=== PATIENT | female | born 1950 | race Caucasian/White ===

== ENCOUNTER 2024-05-10 11:36 | Emergency (ER) | payer MEDICARE, BC, SELFPAY ==
[2024-05-10 11:48] VITALS: BP 129/105
[2024-05-10 11:55] VITALS: BP 105/53
[2024-05-10 12:01] VITALS: BP 99/68
--- NOTE | 2024-05-10 12:14 | ED.GENMED ---
History of Present Illness
<Felicity Bruner PA-C - Last Filed: 05/10/24 17:35>
General
Chief Complaint: Chest Pain
Source: patient
Exam Limitations: none
Time Seen by Provider: 05/10/24 12:13
Nursing documentation reviewed up to this point in time: agreed with
History of Present Illness
History of Present Illness:
This is a 73 y/o female with a PMH of hypertension, hyperlipidemia, thyroid cancer, intellectual disability, resting tremors presenting emergency department today with concerns of chest pain. Patient is present with her brother who is her primary
licensed psychologist manager. According to brother, patient is a poor historian and will hear about someone else having a medical problem and starts to express those complains. He states that when it started, he thought nothing of it due to this but than her
complaints persisted and she repeatedly requested to see her primary care provider Dr. Santana. Patient herself reports that this pain is felt in the middle of her chest and radiates down the left arm. It is not related to exertion. It will come on
randomly. Brother lives with patient and that she has had no falls recently, no history of trauma on the external chest wall. Patient denies any shortness of breath. Brother denies any family history of cardiac disease. Patient is on Xarelto for
recurrent blood clots, she wears compression leggings on her left leg. Patient denies belly pain, back pain, nausea, vomiting.
Past History
<Felicity Bruner PA-C - Last Filed: 05/10/24 17:35>
Past History
ED Past Medical History: HTN, Hypercholesterolemia and Other (Frequent UTI, Mentally challanged, previous DVT on anticoagulation)
ED Past Surgical History: Cholecystectomy
Social History
Tobacco: Non-smoker
Alcohol: None
Personal: Single
Living: with family
Employment: Disabled
Family History
Family History: Negative Diabetes, Hypertension or CAD
Review of Systems
<Felicity Bruner PA-C - Last Filed: 05/10/24 17:35>
Review of Systems
All Other Systems: ROS reviewed and negative except as documented in HPI and ROS
Phy Exam
<Felicity Bruner PA-C - Last Filed: 05/10/24 17:35>
Physical Exam
Physical Exam:
General: Patient is well appearing and in no acute distress; non-toxic
Skin: Warm and dry, no rashes or lesions
Head: Normocephalic, atraumatic
Eyes: Sclera non-icteric. EOMs intact. PERRLA.
Cardiac: Regular rate and rhythm, no murmurs. Mild tenderness to palpation of the external chest wall
Peripheral Vascular: No lower extremity swelling or edema
Pulm: Normal respiratory effort, no wheezes, rales, or rhonchi.
Abdomen: No abdominal tenderness to palpation, no palpable masses
Neuro: CN II-XII intact, no focal neurologic deficits.
Psychiatric: Appropriate mood and affect.
Scores
<Felicity Bruner PA-C - Last Filed: 05/10/24 17:35>
Heart Score for Chest Pain Patients
STEMI patient?: No
History: Slightly or Non-Suspicious
ECG: Normal
Age: >/= 65 years
Risk Factors: 1 or 2 Risk Factors
Troponin: </= Normal Limit
Heart Score for Chest Pain Patients: 3
Heart Score Risk: 2.5% MACE over next 6 weeks
Course
<Felicity Bruner PA-C - Last Filed: 05/10/24 17:35>
Orders/Labs/Results
Orders:
Orders
05/10/24 11:38
ECG [Electrocardiogram (*1)] Urgent
Reason for Study: Chest Pain
EKG- Treatment ONCE
05/10/24 12:25
Cardiac Monitoring- Treatment ONCE
IV Insert/Care/Rem.- Treatment PRN
O2 Therapy [RESP] Urgent
Titrate/Wean O2 to maintain O2 sat greater than (%): 90
Special Instructions: Maintain sats >/=90%
Pulse Ox/spot Check [RESP] Urgent
Quantity: 1
Special Instructions: ON ROOM AIR
05/10/24 12:32
CR Chest - 2 Views Urgent
Comment:
Reason For Exam: chest pain
05/10/24 12:34
Basic Metabolic Panel Urgent
Complete Blood Count/With Diff Urgent
Lipase Urgent
Troponin I Urgent
Abnormal Lab Results
05/10/24
12:34
RDW 16.4 H %
(11.5-14.5)
MPV 11.7 H fL
(7.4-10.4)
Absolute Monos (auto) 1.0 H 10^3/uL
(0.1-0.6)
Monocytes % 13.7 H %
(1.7-9.3)
BUN 31 H mg/dl
(7-17)
05/10/24 12:34
05/10/24 12:34
Vital Signs
Initial and Last Documented VS:
Initial Vital Signs
Temp Pulse Resp BP Pulse Ox
97.6 F 75 18 129/105 98
05/10/24 11:48 05/10/24 11:48 05/10/24 11:48 05/10/24 11:48 05/10/24 11:48
Last Documented Vital Signs
Temp Pulse Resp BP Pulse Ox
97.6 F 62 19 110/66 96
05/10/24 11:48 05/10/24 13:54 05/10/24 13:54 05/10/24 13:54 05/10/24 13:54
<Zackery Whitney DO - Last Filed: 05/10/24 13:42>
Orders/Labs/Results
Orders:
Orders
05/10/24 11:38
ECG [Electrocardiogram (*1)] Urgent
Reason for Study: Chest Pain
EKG- Treatment ONCE
05/10/24 12:25
Cardiac Monitoring- Treatment ONCE
IV Insert/Care/Rem.- Treatment PRN
O2 Therapy [RESP] Urgent
Titrate/Wean O2 to maintain O2 sat greater than (%): 90
Special Instructions: Maintain sats >/=90%
Pulse Ox/spot Check [RESP] Urgent
Quantity: 1
Special Instructions: ON ROOM AIR
05/10/24 12:32
CR Chest - 2 Views Urgent
Comment:
Reason For Exam: chest pain
05/10/24 12:34
Basic Metabolic Panel Urgent
Complete Blood Count/With Diff Urgent
Lipase Urgent
Troponin I Urgent
Abnormal Lab Results
05/10/24
12:34
RDW 16.4 H %
(11.5-14.5)
MPV 11.7 H fL
(7.4-10.4)
Absolute Monos (auto) 1.0 H 10^3/uL
(0.1-0.6)
Monocytes % 13.7 H %
(1.7-9.3)
BUN 31 H mg/dl
(7-17)
05/10/24 12:34
05/10/24 12:34
Vital Signs
Initial and Last Documented VS:
Initial Vital Signs
Temp Pulse Resp BP Pulse Ox
97.6 F 75 18 129/105 98
05/10/24 11:48 05/10/24 11:48 05/10/24 11:48 05/10/24 11:48 05/10/24 11:48
Last Documented Vital Signs
Temp Pulse Resp BP Pulse Ox
97.6 F 62 19 110/66 96
05/10/24 11:48 05/10/24 13:54 05/10/24 13:54 05/10/24 13:54 05/10/24 13:54
<Felicity Bruner PA-C - Last Filed: 05/10/24 17:35>
MDM/Problems Addressed
Differential Diagnosis Includes:
ddx include musculoskeletal sprain/strain, ACS, pneumothorax, GERD
MDM/Problems Addressed:
Chest pain:
This is a 73 y/o female with a PMH of hypertension, hyperlipidemia, thyroid cancer, intellectual disability, resting tremors presenting emergency department today with concerns of chest pain. Patient is present with her brother who is her primary
licensed psychologist manager. The pain has been going on for 2 weeks. The pain radiates into her left arm and occasionally into the right. She has never seen a premises technician before. She has no personal or family history of cardiac disease. Her vital signs are stable.
She is well-appearing on exam, her heart is regular rate and rhythm with no murmurs, she does have mild tenderness palpation external chest wall. Her CBC and CMP are unremarkable. Her chest x-ray is negative for any acute cardiopulmonary process.
Her troponin is undetectable. She stable to discharge at this point considering the length of her symptoms, however considering she is never evaluated by cardiology for her, we will provide her with referral to the low risk outpatient chest pain
hotline. Return precautions discussed.
Chronic conditions affecting care:
hypothyroidism, HTN, HLP, resting tremor, intellectual disability
Acute Exacerbation and/or Progression of Chronic Illness:
hypothyroidism, HTN, HLP, resting tremor, intellectual disability
<Felicity Bruner PA-C - Last Filed: 05/10/24 17:35>
*Pulse Oximetry
Patient hypoxic: no
*EKG
Interpreted by ED Provider?: Yes
EKG Intrepretation Date: 05/10/24
Interpretation: normal
Comparison EKG: no changes
Heart Rate: 65
Rate: normal
Rhythm: sinus
Kyle: normal axis
Interval: normal interval
QRS Pattern: normal QRS
Ischemia: no ischemia
*Biological Science Technician Interpretation
Rate: normal
Interpretation: normal
Heart Rate: 70
Rhythm: sinus
*Critical Care Note
Total Time (30-74mins, 75-104mins- exclusive of procedures): Not Applicable
Data Reviewed
Review of Other/Old Records Reveals: Records (reviewed ER physician documentation from 11/11/22)
<Felicity Bruner PA-C - Last Filed: 05/10/24 17:35>
Patient Management
Escalation/DeEscalation of care consider admission/obs:
Admit not indicated. Patient stable for discharge.
ED Attending Note
<Felicity Bruner PA-C - Last Filed: 05/10/24 17:35>
-
Portions of this chart may have been created with voice recognition software.� Occasional wrong word or��sound alike� substitutions may have occurred due to the inherent limitations of voice recognition software.
<Zackery Whitney DO - Last Filed: 05/10/24 13:42>
ED Attending Note
Patient seen and examined by attending physician: Yes
I performed the substantive portion of visit, reviewed & personally made and approve the management plan that is documented in note by myself or MERARI.: Yes
I performed a history and physical exam of patient and discussed management with resident, I reviewed resident's note and agree with documented findings and plan of care.: Yes
ED Attending Note:
I evaluated the patient at bedside and spoke to the brother. The patient's been having chest discomfort sometimes with radiation to the left upper extremity and sometimes with radiation to the right upper extremity. On evaluation, the patient has
decreased active range of motion at the left wrist due to pain. I suggest that she try Motrin. Given the associated chest pain for a couple of weeks, troponin and EKG were obtained which were unremarkable. She is also to follow-up with cardiology
as an outpatient.
Discharge Plan
Departure
Patient Disposition: Home (Routine Discharge)
Date of Disposition: 05/10/24
Time of Disposition: 13:40
Patient with high blood pressure during this ER visit?: No
Condition: Good
Discharge Problem:
Chest pain
Instructions: Chest Pain DCA Follow Up, BLOOD PRESSURE, Chest Pain
Prescriptions:
No Action
simvastatin 40 MG tablet
5 mg PO QPM
lisinopril 2.5 MG tablet
5 mg PO DAILY
rivaroxaban [Xarelto] 15 MG tablet
15 mg PO DAILY
tramadol 50 mg tablet
25 mg PO TID PRN (Reason: pain) Qty: 10 0RF
Referrals:
Adriana Santana MD [Family Provider] -
Activity Restrictions/Additional Instructions:
You should receive a call from [facility] to set up an appointment. If you do not receive a call within the next few days, please call the attached number to set up an appointment.
Please return to the emergency department should you experience an acute worsening of your symptoms, shortness of breath, headache, fevers or chills.
Interventions
Interventions:
*General Assessment Last Done: 05/10/24 11:45
*Neglect/Abuse Screening Last Done: 05/10/24 11:45
ED- Fall Risk Assessment Last Done: 05/10/24 12:30
*Nursing Disposition Last Done: 05/10/24 14:15
ED- Cardiac Assessment Last Done: 05/10/24 12:26
Discharge Date and Time
Discharge Date/Time: 05/10/24 14:15
Print Language: EGYPTIAN
[2024-05-10 12:45] VITALS: BP 104/64
[2024-05-10 12:49] LABS: % Basophils 0.6 % (0-2); % Eosinophils 3.6 % (0-6); % Immature Granulocytes 0.3 % (0-0.5); % Lymphocytes 29.7 % (20.5-51.1); % Monocytes 13.7 % (1.7-9.3); % Neutrophils 52.1 % (42.2-75.2); Absolute Eosinophils 0.3 10^3/uL (0-0.7); Absolute Lymphocytes 2.1 10^3/uL (1.2-3.4); Absolute Neutrophils 3.7 10^3/uL (1.4-6.5); Hematocrit 42.4 % (37.0-47.0); Hemoglobin 14.4 g/dL (12.0-16.0); Mean Corpuscular Hgb 28.1 pg (27.0-31.0); Mean Corpuscular Volume 82.8 fL (81.0-99.0); Mean Platelet Volume 11.7 fL (7.4-10.4); Nucleated Red Blood Cells % 0 %; Platelet Count 255 10^3/uL (130-400); Red Blood Cell Count 5.12 10^6/uL (4.20-5.40); Red Cell Dist. Width 16.4 % (11.5-14.5)
[2024-05-10 13:11] LABS: Troponin I < 0.012 ng/ml
[2024-05-10 13:12] LABS: Blood Urea Nitrogen 31 mg/dl (7-17); Calcium 9.5 mg/dl (8.4-10.2); Carbon Dioxide 26 mmol/L (22-30); Chloride 105 mmol/L (98-107); Glucose 96 mg/dl (70-99); Lipase 254 U/L (23-300); Sodium 138 mmol/L (135-145); eGFR 59.12
[2024-05-10 13:54] VITALS: BP 110/66
== END 2024-05-10 14:15 | disposition home or self-care (01) ==
LOC: EMR 11:36
PROVIDERS: Physician Assistant; EMERGENCY PHYSICIAN Emergency Medicine; FAMILY PHYSICIAN Internal Medicine
DX: R07.89 Other chest pain (principal); M79.602 Pain in left arm; R25.1 Tremor, unspecified; I10 Essential (primary) hypertension; E78.00 Pure hypercholesterolemia, unspecified; F32.A Depression, unspecified; F79 Unspecified intellectual disabilities; Z79.01 Long term (current) use of anticoagulants; Z85.850 Personal history of malignant neoplasm of thyroid; Z87.440 Personal history of urinary (tract) infections; Z86.718 Personal history of other venous thrombosis and embolism; Z90.49 Acquired absence of other specified parts of digestive tract
CPT/HCPCS: 99284; 94760; 71046; 80048; 83690; 84484; 85025; 93005

== ENCOUNTER → 2024-09-29 09:52 | Outpatient (REF) | payer MEDICARE, BC, SELFPAY | LOC: HWWDC 09:52 | PROVIDERS: ATTENDING PHYSICIAN Internal Medicine | DX: Z12.31 Encounter for screening mammogram for malignant neoplasm of breast (principal) | CPT/HCPCS: 77063; 77067 ==

== ENCOUNTER → 2025-01-17 09:34 | Outpatient (REF) | payer MEDICARE, BC, SELFPAY | LOC: HWRAD 09:34 | PROVIDERS: ATTENDING PHYSICIAN Internal Medicine | DX: M81.0 Age-related osteoporosis without current pathological fracture (principal) | CPT/HCPCS: 77080 ==

== ENCOUNTER 2025-08-11 14:57 | Emergency (ER) | payer MEDICARE, BC, SELFPAY ==
[2025-08-11 15:01] VITALS: BP 118/58
--- NOTE | 2025-08-11 15:11 | ED.MUSCINJ ---
HPI-Injury
General
Chief Complaint: Fall
Source: patient
Exam Limitations: none
Time Seen by Provider: 08/11/25 15:10
Nursing documentation reviewed up to this point in time: agreed with
History of Present Illness-Injury
Initial Injury comments:
75-year-old female with history of HTN, HLD, hypothyroid, partial thyroidectomy for cancer of thyroid, depression, DVT on Xarelto, presents with right shoulder and left hip pain after a fall.
Patient states she was sitting on the toilet after her shower when she fell.States left hip pain is 10/10
Patient's brother and his arrived, she lives with them. They are her caregivers. She is cognitively impaired and brother states 'she has a mind of an 8-year-old.'
His states she is the one who gives her her showers, after she showers she usually sits her on the toilet seat with a warm towel wrapped around her for a few minutes and then gets her dressed. Patient's brother states when they found her on
the floor, she had her underwear around her ankles so they are assuming that she was trying to her underwear on when she fell. There was no loss of consciousness. Patient denies headache or neck pain, denies back pain, denies chest pain or
abdominal pain. Denies nausea.
Brother at bedside states her left hip is '[id number]' and she is scheduled for a left hip replacement on 09/05. He states whenever she is asked how her pain is she always states '10 out of 10'
Pt had Tylenol 1000 mg prior to her shower.
Past History
Past History
ED Past Medical History: HTN, Hypercholesterolemia and Other (Frequent UTI, Mentally challenged, previous DVT on anticoagulation)
ED Past Surgical History: Cholecystectomy
Social History
Tobacco: Non-smoker
Alcohol: None
Personal: Single
Living: with family
Employment: Disabled
Family History
Family History: Negative Diabetes, Hypertension or CAD
Review of Systems
Review of Systems
Allergies reviewed?: Yes
All Other Systems: ROS reviewed and negative except as documented in HPI and ROS
Phy Exam
Physical Exam
Physical Exam:
GENERAL: No acute distress. A&Ox3.
CONSTITUTIONAL: Afebrile.
EYES: clear, conjunctivae normal
ENMT: moist mucus membranes, Pharynx nl, teeth intact.
RESPIRATORY: Regular respirations, nonlabored, lungs clear.
CARDIOVASCULAR: Regular rate and rhythm, no murmurs, no rubs.
GI: Soft, nontender, normal BS
MUSCULOSKELETAL: Moves with ease. Well perfused.
SKIN: Warm, dry, pink, deep clean abrasion left side upper lip
PSYCH: Normal mood and affect. Well kept, interactive and appropriate
NEUROLOGIC: Awake, alert and oriented. No focal neurological deficits.
Injury Course
Orders/Labs/Results
Orders:
Orders
08/11/25 15:23
Hip, Left 2-3 Views [CR Hip - LT w/wo Pel 2-3 Vw*] Urgent
Comment:
Reason For Exam: pain after fall
Include a pelvis x-ray?: Yes
Shoulder, Right, Trauma [CR Shoulder, Trauma - Right] Urgent
Comment:
Reason For Exam: pain after fall
08/11/25 15:24
CT Head W/o Iv Contrast Urgent
Comment:
Reason For Exam: fall questionable head strike on Xarelto
08/11/25 15:36
Complete Blood Count/With Diff Urgent
Comprehensive Metabolic Panel Urgent
08/11/25 16:25
0.9% Sodium Chloride 1000 ml [Nss] 1,000 ml IV BOLUS
08/11/25 16:34
CT Lower Ext W/o Iv Cont Lt Urgent
Comment:
Reason For Exam: pain after fall
Facial Bones wo Contrast CT [CT Facial Bones W/o Iv Contras] Urgent
Comment:
Reason For Exam: pain swelling right cheek after fall
Abnormal Lab Results
08/11/25
15:36
MCHC 32.3 L g/dL
(33.0-37.0)
RDW 16.2 H %
(11.5-14.5)
MPV 12.3 H fL
(7.4-10.4)
Absolute Monos (auto) 0.9 H 10^3/uL
(0.1-0.6)
Monocytes % 12.4 H %
(1.7-9.3)
BUN 37 H mg/dl
(7-17)
Glucose 101 H mg/dl
(70-99)
Total Protein 6.2 L g/dl
(6.3-8.2)
08/11/25 15:36
08/11/25 15:36
MDM/Problems Addressed
Differential Diagnosis Includes:
Fracture versus contusion left hip, right shoulder
Facial bone fracture versus contusion
MDM/Problems Addressed:
75-year-old female with history of HTN, HLD, hypothyroid, partial thyroidectomy for cancer of thyroid, depression, DVT on Xarelto presents with right shoulder and left hip pain after a fall.
Patient states she was sitting on the toilet after her shower when she fell.States left hip pain is 10/10
Patient's brother and his arrived, she lives with them. They are her caregivers. She is cognitively impaired and brother states 'she has a mind of an 8-year-old.'
His states she is the one who gives her her showers, after she showers she usually sits her on the toilet seat with a warm towel wrapped around her for a few minutes and then gets her dressed. Patient's brother states when they found her on
the floor, she had her underwear around her ankles so they are assuming that she was trying to her underwear on when she fell. There was no loss of consciousness. Patient denies headache or neck pain, denies back pain, denies chest pain or
abdominal pain. Denies nausea.
Brother at bedside states her left hip is '[id number]' and she is scheduled for a left hip replacement on 09/05. He states whenever she is asked how her pain is she always states '10 out of 10'
Pt had Tylenol 1000 mg prior to her shower.
CBC with no clinically significant abnormality
CMP with BUN of 37, IV fluid ordered for dehydration. Otherwise no abnormality
Right shoulder x-ray initially read by this examiner: No acute bony abnormality noted
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 Will get CT scan as pt in significant pain with any movement. Typically ambulates with walker or cane.
Family at bedside updated.
Right side facial/cheek swelling and bruising now noted, pt tender here. CT facial bones pending
6:00 PM:
CT facial bones reveals no fracture
Head CT negative
CT left hip radiology report reviewed: No acute fracture or dislocation. Severe severe arthritis
Test results reviewed with family
Patient is out of bedand ambulating well with walker.
Stable for discharge
Family to take her home.
*Pulse Oximetry
SaO2: 97
Oxygen Mode of Delivery: Room air
Patient hypoxic: no
*Critical Care Note
Total Time (30-74mins, 75-104mins- exclusive of procedures): Not Applicable
ED Attending Note
-
Portions of this chart may have been created with voice recognition software.� Occasional wrong word or��sound alike� substitutions may have occurred due to the inherent limitations of voice recognition software.
Discharge Plan
Departure
Patient Disposition: Home (Routine Discharge)
Date of Disposition: 08/11/25
Time of Disposition: 18:34
Patient with high blood pressure during this ER visit?: No
Condition: Good
Discharge Problem:
Fall from slip, trip, or stumble, Contusion of face, Left hip pain, Abrasion of lip
Instructions: Osteoarthritis, Head Injury in Adults (DC), Contusion (DC), Skin Abrasions (DC)
Prescriptions:
No Action
simvastatin 40 MG tablet
5 mg PO QPM
lisinopril 2.5 MG tablet
5 mg PO DAILY
rivaroxaban [Xarelto] 15 MG tablet
15 mg PO DAILY
tramadol 50 mg tablet
25 mg PO TID PRN (Reason: pain) Qty: 10 0RF
Referrals:
your orthopedic surgeon [Other] - Keep scheduled appt
UNKNOWN - PT DOES,NOT KNOW [Family Provider]
Activity Restrictions/Additional Instructions:
As we discussed, for the contusion on your face, cold compress 20 minutes off and on is much as you can in the next 2 days. You may note worse swelling in the morning, especially if you lay on that side of your face.
Use your cane or your walker at all times when up and around to avoid falling until your hip feels a little better
Tylenol 1000 mg up to 3 times a day as needed for pain
Return immediately for vomiting more than once in 1 hour, confusion, headache that is unrelieved with Tylenol or seeming worse in any way
Interventions
Interventions:
*Risk Screen - Suicide Last Done: 08/11/25 15:06
*General Assessment Last Done: 08/11/25 15:05
*Neglect/Abuse Screening Last Done: 08/11/25 15:06
*ED- Fall Risk Assessment Last Done: 08/11/25 15:05
*ED COVID-19 Vaccine History Last Done: 08/11/25 15:05
*ED Influenza Vaccine History Last Done: 08/11/25 15:05
*Nursing Disposition Last Done: 08/11/25 18:46
ED-Musculoskeletal Assessment Last Done: 08/11/25 15:06
ED- Neurological Assessment Last Done: 08/11/25 15:06
ED-Skin Assessment Last Done: 08/11/25 15:06
Discharge Date and Time
Discharge Date/Time: 08/11/25 18:47
Print Language: SAMI
[2025-08-11 15:52] LABS: Hematocrit 39.0 % (37.0-47.0); Hemoglobin 12.6 g/dL (12.0-16.0); Mean Corp Hgb Conc. 32.3 g/dL (33.0-37.0); Mean Corpuscular Volume 84.2 fL (81.0-99.0); Nucleated Red Blood Cells % 0 %; Platelet Count 223 10^3/uL (130-400); Red Cell Dist. Width 16.2 % (11.5-14.5)
[2025-08-11 16:00] LABS: ALT (SGPT) 20 U/L (0-35); AST (SGOT) 27 U/L (14-36); Albumin 3.7 g/dl (3.5-5.0); Alkaline Phosphatase 63 U/L (38-126); Blood Urea Nitrogen 37 mg/dl (7-17); Calcium 9.4 mg/dl (8.4-10.2); Carbon Dioxide 29 mmol/L (22-30); Chloride 106 mmol/L (98-107); Glucose 101 mg/dl (70-99); Potassium 4.7 mmol/L (3.5-5.1); Sodium 139 mmol/L (135-145); Total Protein 6.2 g/dl (6.3-8.2); eGFR 58.39
[2025-08-11] MEDS: NSS 1000 IV (16:31)
[2025-08-11 17:42] VITALS: BP 129/62
[2025-08-11 18:00] VITALS: BP 137/71
== END 2025-08-11 18:47 | disposition home or self-care (01) ==
LOC: EMR 14:57
PROVIDERS: Registered Nurse; EMERGENCY PHYSICIAN Emergency Medicine
DX: S00.83XA Contusion of other part of head, initial encounter (principal); M25.552 Pain in left hip; S00.511A Abrasion of lip, initial encounter; M16.12 Unilateral primary osteoarthritis, left hip; I10 Essential (primary) hypertension; E78.00 Pure hypercholesterolemia, unspecified; E89.0 Postprocedural hypothyroidism; F32.A Depression, unspecified; Z79.01 Long term (current) use of anticoagulants; Z86.718 Personal history of other venous thrombosis and embolism; Z85.850 Personal history of malignant neoplasm of thyroid; W01.0XXA Fall on same level from slipping, tripping and stumbling without subsequent striking against object, initial encounter; Y92.002 Bathroom of unspecified non-institutional (private) residence as the place of occurrence of the external cause
CPT/HCPCS: 99284; 96360; 70450; 70486; 73030; 73502; 73700; 80053; 85025

== ENCOUNTER → 2025-08-16 10:55 | Outpatient (REF) | payer MEDICARE, BC, SELFPAY | LOC: HWRAD 10:55 | PROVIDERS: ATTENDING PHYSICIAN Internal Medicine | DX: Z91.81 History of falling (principal); M25.511 Pain in right shoulder | CPT/HCPCS: 73030; 73060 ==

== ENCOUNTER → 2025-10-02 09:33 | Outpatient (REF) | payer MEDICARE, BC, SELFPAY | LOC: HWWDC 09:33 | PROVIDERS: ATTENDING PHYSICIAN Internal Medicine | DX: Z12.31 Encounter for screening mammogram for malignant neoplasm of breast (principal) | CPT/HCPCS: 77063; 77067 ==